=== PATIENT | male | born 1955 | race Caucasian/White ===

== ENCOUNTER 2024-09-06 13:18 | Emergency (ER) | payer MEDICARE ==
[~2024-09-06] VITALS: Ht 182.9 cm; Wt 95.3 kg
[2024-09-06] MEDS ORDERED: LACT10SO85 PO (15:15)
[2024-09-06 15:17] VITALS: BP 121/79; PULSE 77; RESP 16; TEMP 98.6; O2SAT 100
== END 2024-09-06 15:23 | disposition home or self-care (01) ==
LOC: EDH 13:18
DX: S76.311A Strain of muscle, fascia and tendon of the posterior muscle group at thigh level, right thigh, initial encounter (principal); K59.00 Constipation, unspecified; Z88.0 Allergy status to penicillin; X58.XXXA Exposure to other specified factors, initial encounter; Y93.89 Activity, other specified; Y92.89 Other specified places as the place of occurrence of the external cause; Y99.8 Other external cause status
CPT/HCPCS: 74176